=== PATIENT | male | born 1955 | race Caucasian/White ===

== ENCOUNTER 2017-04-28 22:54 | Observation (INO) | payer OTHER ==
[2017-04-29] MEDS ORDERED: NS 0.9% 1000 ML* 1,000 ML IV ONE (00:55)
[2017-04-29 01:53] LABS: Hematocrit 36 % (42-52); Hemoglobin 12.1 g/dl (14.0-18.0); Mean Corpuscular HGB Conc 34 g/dl (31-36); Mean Corpuscular Hemoglobin 30 pg (27-31); Mean Corpuscular Volume 87 fL (80-94); Mean Platelet Volume 11 um3 (7.4-10.4); Red Blood Count 4.08 10^6/ul (4.0-5.4); Red Cell Distribution Width 13 % (10.5-15); White Blood Count 5.9 10^3/ul (3.5-10.8)
[2017-04-29 02:04] LABS: Albumin 3.8 g/dL (3.2-5.2); Calcium 8.8 mg/dL (8.6-10.3); EGFR African American 96.7 (>60); EGFR Non-African American 75.2 (>60); Globulin 2.4 g/dL (2-4); Total Bilirubin 0.4 mg/dL (0.2-1.0); Total Protein 6.2 g/dL (6.4-8.9)
[2017-04-29 02:05] LABS: Urine Bilirubin Negative (Negative); Urine Glucose Negative (Negative); Urine Nitrite Negative (Negative)
[2017-04-29 02:08] LABS: Urine Bacteria Absent (Absent)
[2017-04-29 03:39] LABS: HDL Cholesterol 33.5 mg/dL
[2017-04-29] MEDS ORDERED: Acetaminophen TAB* 325 MG PO PRN (04:57)
--- NOTE | 2017-04-29 07:57 | ED ---
Janna Cordon Rebecca, scribed for William Gatica MD on 04/29/17 at 0045 . Neurological HPI - HPI Summary HPI Summary: Pt is a 62 y/o M who presents to ED c/o L-sided numbness. Pt reports that tonight at approximately 2215, after dinner he began experiencing L-sided weakness, L-sided dental pain and L-sided facial and shoulder numbness. Reports that when carrying items, he never felt as though he was going to drop them, but that he "didn't feel quite right" and that "walking around felt funny." Sx aggravated and alleviated by nothing. Additionally c/o diaphoresis, lightheadedness and mild ORDAZ that have resolved. Denies facial droop or slurred speech with his family confirming that he has been conversing regularly. PMHx A Fib - is on a blood thinner. No prior similar episodes of numbness. He forgot to take his night medications until about 30 minutes after he typically takes them. No FHx strokes. - History of Current Complaint Chief Complaint: EDNeurologicalDeficit Stated Complaint: HOT FLASHES Time Seen by Provider: 04/29/17 00:29 Hx Obtained From: Patient Onset/Duration: Started hours ago, Still Present Pain Intensity: 0 Pain Scale Used: 0-10 Numeric Character: Weak - L-sided, Numbness/Tingling - L-sided facial numbness Aggravating: Nothing Alleviating: Nothing Associated Signs and Symptoms: Positive: Headache - resolved, Lightheadness. Negative: Impaired Speech - Allergy/Home Medications Allergies/Adverse Reactions: Allergies Allergy/AdvReac Type Severity Reaction Status Date / Time No Known Allergies Allergy Verified 04/29/17 01:36 Home Medications: Home Medications Atorvastatin* [Lipitor*] 10 mg PO DAILY 04/29/17 [History Confirmed 04/29/17] Dabigatran CAP(NF) [Pradaxa CAP(NF)] 150 mg PO BID 04/29/17 [History Confirmed 04/29/17] Lisinopril [Zestril 10 MG-] 10 mg PO DAILY 04/29/17 [History Confirmed 04/29/17] Metoprolol Tartrate [Lopressor] 25 mg PO DAILY 04/29/17 [History Confirmed 04/29] Omeprazole [Prilosec] 20 mg PO DAILY 04/29/17 [History Confirmed 04/29/17] Propafenone HCl 300 mg PO BID 04/29/17 [History Confirmed 04/29/17] PMH/Surg Hx/FS Hx/Imm Hx Cardiovascular History: Reports: Hx Atrial Fibrillation Neurological History: Denies: Hx CVA, Hx Transient Ischemic Attacks (TIA) Infectious Disease History: No Infectious Disease History: Denies: Traveled Outside the [place] in Last 30 Days - Family History Known Family History: Positive: Other - No FHx stroke - Social History Alcohol Use: Occasionally Substance Use Type: Reports: None Smoking Status (MU): Never Smoked Tobacco Review of Systems Positive: Skin Diaphoresis - resolved Positive: Dental Pain - L-sided Negative: Chest Pain Negative: Shortness Of Breath Neurological: Other - Lightheadedness - resolved; NEGATIVE facial droop Positive: Headache - Mild - resolved, Weakness - Left-sided, Numbness - Left- sided shoulder and facial. Negative: Slurred Speech All Other Systems Reviewed And Are Negative: Yes Physical Exam - Summary Physical Exam Summary: The patient is well-nourished in no acute distress and in no acute pain. The skin is warm and dry and skin color reflects adequate perfusion. HEENT: The head is normocephalic and atraumatic. VIsual acuity is within normal range. The pupils are equal and reactive. The conjunctivae are clear and without drainage. Nares are patent and without drainage. Mouth reveals moist mucous membranes with a midline tongue and the throat is without erythema and exudate. The external ears are intact. The ear canals are patent and without drainage. The tympanic membranes are intact. Neck is supple with full range of motion and non-tender. There are no carotid bruits. Respiratory: Chest is non-tender. Lungs are clear to auscultation and breath sounds are symmetrical and equal. Cardiovascular: Hear is regular rate and rhythm. There is no murmur or rub auscultated. There is no peripheral edema and pulses are symmetrical and equal. Abdomen: The abdomen is soft and non-tender. There are normal bowel sounds heard in all four quadrants and there is no organomegaly palpated. Musculoskeletal: There is no back pain noted. Extremities are non-tender with full range of motion. There is good capillary refill. There is no peripheral edema or calf tenderness elicited. Neurological: Patient is alert and oriented to person, place and time. The patient has symmetrical motor strength in all four extremities. Cranial nerves are grossly intact. Deep tendon reflexes are symmetrical and equal in all four extremities. He has no facial droop, no pronator drift in the upper extremities or lower extremities. Finger to nose is intact and heel to bowen is intact. He has no decreased sensation. Psychiatric: The patient has an appropriate affect and does not exhibit any anxiety or depression. NIH: 0 GCS: 15 Triage Information Reviewed: Yes Vital Signs On Initial Exam: Initial Vitals Temp Pulse Resp BP Pulse Ox 98.2 F 38 18 150/55 98 04/28/17 22:57 04/28/17 22:57 04/28/17 22:57 04/28/17 22:57 04/28/17 22:57 Vital Signs Reviewed: Yes Diagnostics - Vital Signs Vital Signs Temp Pulse Resp BP Pulse Ox 04/28/17 23:27 60 04/28/17 23:18 152/66 04/28/17 23:17 65 96 04/28/17 23:14 53 96 04/28/17 23:13 146/51 04/28/17 22:57 98.2 F 38 18 150/55 98 - Laboratory Lab Results: Lab Results 04/29/17 04/29/17 04/29/17 Range/Units 01:39 01:39 01:39 WBC 5.9 (3.5-10.8) 10^3/ul RBC 4.08 (4.0-5.4) 10^6/ul Hgb 12.1 L (14.0-18.0) g/dl Hct 36 L (42-52) % MCV 87 (80-94) fL MCH 30 (27-31) pg MCHC 34 (31-36) g/dl RDW 13 (10.5-15) % Plt Count 132 L (150-450) 10^3/ul MPV 11 H (7.4-10.4) um3 Neut % (Auto) 51.1 (38-83) % Lymph % (Auto) 30.7 (25-47) % Shelby % (Auto) 7.8 (1-9) % Eos % (Auto) 9.2 H (0-6) % Baso % (Auto) 1.2 (0-2) % Absolute Neuts (auto) 3.0 (1.5-7.7) 10^3/ul Absolute Lymphs (auto) 1.8 (1.0-4.8) 10^3/ul Absolute Monos (auto) 0.5 (0-0.8) 10^3/ul Absolute Eos (auto) 0.5 (0-0.6) 10^3/ul Absolute Basos (auto) 0.1 (0-0.2) 10^3/ul Absolute Nucleated RBC 0 10^3/ul Nucleated RBC % 0 INR (Anticoag Therapy) 1.10 (0.89-1.11) APTT 39.2 H (26.0-36.3) seconds Sodium 137 (133-145) mmol/L Potassium 4.0 (3.5-5.0) mmol/L Chloride 107 (101-111) mmol/L Carbon Dioxide 26 (22-32) mmol/L Anion Gap 4 (2-11) mmol/L BUN 19 (6-24) mg/dL Creatinine 1.00 (0.67-1.17) mg/dL Est GFR ( Amer) 96.7 (>60) Est GFR (Non-Af Amer) 75.2 (>60) BUN/Creatinine Ratio 19.0 (8-20) Glucose 114 H (70-100) mg/dL Lactic Acid (0.5-2.0) mmol/L Calcium 8.8 (8.6-10.3) mg/dL Total Bilirubin 0.40 (0.2-1.0) mg/dL AST 15 (13-39) U/L ALT 15 (7-52) U/L Alkaline Phosphatase 49 (34-104) U/L Troponin I 0.00 (<0.04) ng/mL Total Protein 6.2 L (6.4-8.9) g/dL Albumin 3.8 (3.2-5.2) g/dL Globulin 2.4 (2-4) g/dL Albumin/Globulin Ratio 1.6 (1-3) Triglycerides 198 mg/dL Cholesterol 149 mg/dL LDL Cholesterol 76 mg/dL HDL Cholesterol 33.5 mg/dL Urine Color Urine Appearance Urine pH (5-9) Ur Specific Carmel (1.010-1.030) Urine Protein (Negative) Urine Ketones (Negative) Urine Blood (Negative) Urine Nitrate (Negative) Urine Bilirubin (Negative) Urine Urobilinogen (Negative) Ur Leukocyte Esterase (Negative) Urine WBC (Auto) (Absent) Urine RBC (Auto) (Absent) Ur Squamous Epith Cells (Absent) Urine Bacteria (Absent) Urine Glucose (Negative) 04/29/17 04/29/17 Range/Units 01:39 01:39 WBC (3.5-10.8) 10^3/ul RBC (4.0-5.4) 10^6/ul Hgb (14.0-18.0) g/dl Hct (42-52) % MCV (80-94) fL MCH (27-31) pg MCHC (31-36) g/dl RDW (10.5-15) % Plt Count (150-450) 10^3/ul MPV (7.4-10.4) um3 Neut % (Auto) (38-83) % Lymph % (Auto) (25-47) % Shelby % (Auto) (1-9) % Eos % (Auto) (0-6) % Baso % (Auto) (0-2) % Absolute Neuts (auto) (1.5-7.7) 10^3/ul Absolute Lymphs (auto) (1.0-4.8) 10^3/ul Absolute Monos (auto) (0-0.8) 10^3/ul Absolute Eos (auto) (0-0.6) 10^3/ul Absolute Basos (auto) (0-0.2) 10^3/ul Absolute Nucleated RBC 10^3/ul Nucleated RBC % INR (Anticoag Therapy) (0.89-1.11) APTT (26.0-36.3) seconds Sodium (133-145) mmol/L Potassium (3.5-5.0) mmol/L Chloride (101-111) mmol/L Carbon Dioxide (22-32) mmol/L Anion Gap (2-11) mmol/L BUN (6-24) mg/dL Creatinine (0.67-1.17) mg/dL Est GFR ( Amer) (>60) Est GFR (Non-Af Amer) (>60) BUN/Creatinine Ratio (8-20) Glucose (70-100) mg/dL Lactic Acid 0.9 (0.5-2.0) mmol/L Calcium (8.6-10.3) mg/dL Total Bilirubin (0.2-1.0) mg/dL AST (13-39) U/L ALT (7-52) U/L Alkaline Phosphatase (34-104) U/L Troponin I (<0.04) ng/mL Total Protein (6.4-8.9) g/dL Albumin (3.2-5.2) g/dL Globulin (2-4) g/dL Albumin/Globulin Ratio (1-3) Triglycerides mg/dL Cholesterol mg/dL LDL Cholesterol mg/dL HDL Cholesterol mg/dL Urine Color Straw Urine Appearance Clear Urine pH 5.0 (5-9) Ur Specific Carm[place] 1.015 (1.010-1.030) Urine Protein Negative (Negative) Urine Ketones Negative (Negative) Urine Blood Negative (Negative) Urine Nitrate Negative (Negative) Urine Bilirubin Negative (Negative) Urine Urobilinogen Negative (Negative) Ur Leukocyte Esterase 2+ H (Negative) Urine WBC (Auto) 3+(>20/hpf) H (Absent) Urine RBC (Auto) 2+(6-10/hpf) H (Absent) Ur Squamous Epith Cells Present H (Absent) Urine Bacteria Absent (Absent) Urine Glucose Negative (Negative) Result Diagrams: 04/29/17 01:39 04/29/17 01:39 Lab Statement: Any lab studies that have been ordered have been reviewed, and results considered in the medical decision making process. - CT Brain CT CT Interpretation: No Acute Changes - No acute intracranial hemorhage, mass effect, or midline shift. Mild nonspecific periventricular predominant low density throughout the deep white mater is most likely due to mild small vessel ischemic white matter disease. No evidence of a large territory of subacute stroke. If there is a clinical concern for a small acurte stroke, then followup evaluation with MRI of the brain may be needed. Mild sinusitis. ED physician reviewed this radiology report and agrees. CT Interpretation Completed By: Radiologist NIH Scale - NIH Scale Level of Consciousness: Alert/Keenly Responsive Ask Patient the Month and His/Her Age: Both Correct Ask Pt to Open/Close Eyes and Clean Out Driller Helper/Release Non-Paretic Hand: Both Correctly Best Gaze (Only Horizontal Eye Movement): Normal Visual Field Testing: No Visual Loss Facial Paresis-Pt to Smile & Close Eyes or Grimace Symmetry: Normal/Symmetrical Motor Function - Right Arm: No Drift-Holds 10 Seconds Motor Function - Left Arm: No Drift-Holds 10 Seconds Motor Function - Right Leg: No Drift-Holds 10 Seconds Motor Function - Left Leg: No Drift-Holds 10 Seconds Limb Ataxia-Must be out of Proportion to Weakness Present: Absent Sensory (Use Pinprick to Test Arms/Legs/Trunk/Face): Normal Best Language (Describe Picture, Name Items): No Aphasia Extinction and Inattention: No Abnormality Re-Evaluation - Re-Evaluation First Eval Re-Evaluation Time: 04:03 Change: Improved Comment: Symptoms have completely resolved Course/Dx - Course Assessment/Plan: Pt is a 62 y/o M who presents to ED c/o L-sided numbness. Pt reports that tonight at approximately 2215, after dinner he began experiencing L -sided weakness, L-sided dental pain and L-sided facial and shoulder numbness. Reports that when carrying items, he never felt as though he was going to drop them, but that he "didn't feel quite right" and that "walking around felt funny. " Sx aggravated and alleviated by nothing. Additionally c/o diaphoresis, lightheadedness and mild ORDAZ that have resolved. Denies facial droop or slurred speech with his family confirming that he has been conversing regularly. PMHx A Fib - is on a blood thinner. No prior similar episodes of numbness. He forgot to take his night medications until about 30 minutes after he typically takes them. No FHx strokes. CXR reveals no acute findings. EKG is ____. In the ED course, pt received fluids wich improved sx. Upn re-evaluation sx have completely resolved. Discussed care of pt with Dr. Manuel who accepts pt for admission. Pt will be admitted with Dx of TIA. he understands and agrees. Elevated BP noted and advised to f/u with PCP. - Differential Dx Differential Diagnoses Neuro: Positive: Cerebrovascular Accident, Headache, Hemorrhage, Transient Ischemic Attack, Other - atrial fibrillation via history, - Diagnoses Provider Diagnoses: TIA (transient ischemic attack) - Physician Notifications Discussed Care Of Patient With: Pricila Manuel Time Discussed With Above Provider: 04:00 Instructed by Provider To: Other - Accepts pt for admission Discharge - Discharge Plan Condition: Stable Disposition: ADMITTED TO [facility] documentation as recorded by the scribe, DiFabio,Stephanie accurately reflects the service I personally performed and the decisions made by me, William Gatica MD.
--- NOTE | 2017-04-29 07:59 | RAD ---
HISTORY: Headache, left-sided numbness COMPARISONS: None TECHNIQUE: Multiple contiguous axial CT scans were obtained of the head without intravenous contrast. FINDINGS: HEMORRHAGE/INFARCT: There is no hemorrhage or acute infarct. MASSES/SHIFT: There is no mass or shift. EXTRA-AXIAL SPACES: There are no extra-axial fluid collections. SULCI AND VENTRICLES: The sulci and ventricles are normal in size and position for the patient's stated age. CEREBRUM: There is minimal hypoattenuation of the periventricular and subcortical white matter. BRAINSTEM: There are no focal parenchymal abnormalities. CEREBELLUM: There are no focal parenchymal abnormalities. VESSELS: The vessels are grossly normal. PARANASAL SINUSES: There is air-fluid level within the left maxillary sinus. ORBITS: The orbits are unremarkable. BONES AND SOFT TISSUE: No bone or soft tissue abnormalities are noted. OTHER: None IMPRESSION: 1. NO ACUTE INTRACRANIAL PATHOLOGY. 2. MINIMAL CHRONIC SMALL VESSEL ISCHEMIC CHANGES. 3. MILD SINUS MUCOSAL INFLAMMATORY DISEASE, WITH AN AIR-FLUID LEVEL IN THE LEFT MAXILLARY. IN THE CORRECT CLINICAL SETTING, THIS MAY REPRESENT ACUTE SINUSITIS
--- NOTE | 2017-04-29 08:34 | RAD ---
CPT II: CPT II Codes: 3100F Indication: Carotid artery stenosis. Duplex Doppler sonography of the carotid arteries was performed. Right common carotid artery demonstrates intimal wall thickening with plaque extending into the right internal carotid artery. Peak systolic velocity of the distal right common carotid artery is 132 cm/s. Peak systolic velocity of the right internal carotid artery is 139 cm/s. The ICA/CC ratio is 1.05. Right vertebral artery demonstrates antegrade flow. The left common carotid artery demonstrates minimal plaque in the carotid bulb. Peak systolic velocity of the left common carotid artery is 153 cm/s. Peak systolic velocity of the left proximal internal carotid artery is 1 27 cm/s. The IC/CC ratio 0.83. Left vertebral artery demonstrates antegrade flow. IMPRESSION: Elevated velocities are present throughout the common carotid arteries and internal carotid artery laterally. This may be due to hyperdynamic state and correlation with blood pressure is suggested. No definite stenosis is identified when using the ICA/CCA ratios rather than absolute velocities. Minimal plaque is noted in both carotid artery origins.
[2017-04-29] MEDS ORDERED: CMC:Dabigatran CAP(NF) 150 MG CAP PO SCH (09:00)
[2017-04-29] MEDS ORDERED: Atorvastatin* 10 MG TAB PO SCH (09:00)
[2017-04-29] MEDS ORDERED: Omeprazole CAP* 20 MG PO SCH (09:00)
[2017-04-29] MEDS ORDERED: Lisinopril TAB* 10 MG PO SCH (09:00)
[2017-04-29] MEDS ORDERED: Metoprolol Tartrate TAB* 25 MG PO SCH (09:00)
[2017-04-29] MEDS ORDERED: proPAFENone TAB* 150 MG PO SCH (09:00)
--- NOTE | 2017-04-29 11:44 | RAD ---
Indication: Evaluate for stroke. Image sequences: Sagittal and axial T1, axial T2, FLAIR, diffusion and susceptibility weighted images of the brain were obtained. Ventricular structures are midline. No midline shift is noted. The extra-axial spaces are unremarkable. There is no evidence of intracranial mass or hemorrhage. No other high or low signal lesions are identified. Diffusion-weighted images demonstrates no restriction of diffusion. Mucosal thickening of the left maxillary sinus is noted with air-fluid levels. Mastoid air cells and paranasal sinuses are unremarkable. IMPRESSION: Chronic and acute sinusitis involving the left maxillary sinus. No restriction of diffusion is identified. No other masses or fluid collections are noted.
[2017-04-29] MEDS ORDERED: Iohexol 350* (CONTRAST) 500 ML MDV IV ONE (12:12)
--- NOTE | 2017-04-29 13:50 | ECHO ---
Patient: JAZMYN MCKOY [facility] Rec#: [id number] : 1955 Date: 04/29/2017 Age: 62y Height: 177.8 cm / 70.0 in Weight: 90.72 kg / 199.9 lbs Sex: M BSA: 2.09 Room#: 435 Admit Date#: 04/29/2017 Type: Inpatient Referring: Pricila Manuel MD Reading: Bismark Chaney MD Ladies Suit Operator: Arminda Britton [facility] Transthoracic Echocardiogram Indication: TIA BP: 119/64 HR: 53 Rhythm: A-Fib Findings History: HTN,headeache TIA. Left Ventricle: The left ventricular chamber size is normal. Mild concentric left ventricular hypertrophy is observed. Global left ventricular wall motion and contractility are within normal limits. There is normal left ventricular systolic function. The estimated ejection fraction is 55-60%. Normal left ventricular diastolic filling is observed. Left Atrium: The left atrial chamber size is normal. Right Ventricle: The right ventricular cavity size is normal. The right ventricular global systolic function is normal. Right Atrium: The right atrial cavity size is normal. There is no patent foramen ovale visualized. There is no evidence of patent foramen ovale shunting. A patent foramen ovale is not demonstrated with color Doppler and agitated contrast. Aortic Valve: The aortic valve is trileaflet. There is no evidence of aortic valve thickening. There is no evidence of aortic regurgitation. There is no evidence of aortic stenosis. Mitral Valve: The mitral valve leaflets appear normal. There is mild mitral regurgitation. The mitral regurgitant jet is centrally directed. There is no evidence of mitral stenosis. Tricuspid Valve: The tricuspid valve leaflets are normal. There is trace to mild tricuspid regurgitation. There is evidence of mild pulmonary hypertension. There is no tricuspid stenosis. Pulmonic Valve: The pulmonic valve appears normal. There is a trace pulmonic regurgitation. There is no pulmonic stenosis. Pericardium: The pericardium appears normal. Aorta: There is no dilatation of the ascending aorta. There is no dilatation of the aortic arch. There is no dilation of the aortic root. Pulmonary Artery: The main pulmonary artery appears normal. Venous: The venous system is not well visualized. Conclusions No evidence for right to left shunting at the atrial level by color flow or agitated saline. Mild concentric left ventricular hypertrophy is observed. There is normal left ventricular systolic function. The estimated ejection fraction is 55-60%. Normal left ventricular diastolic filling is observed. There is mild mitral regurgitation. There is trace to mild tricuspid regurgitation. There is evidence of mild pulmonary hypertension. There is a trace pulmonic regurgitation. No reports of prior studies offered for comparison. Of note left atrial thrombus assessment cannot asad made by transthoracic echocardiography, would recommend transesophageal echocardiography if clinically indicated. Measurements Name Value Normal Range RVIDd (AP) 2D 2.9 cm (0.9 - 2.6) RVDdMajor (2D) 4.1 cm (2.2 - 4.4) RAd ISD 4CH 5.5 cm (3.4 - 4.9) RA (A4C)W 4 cm (2.9 - 4.6) IVSd (2D) 1.1 cm (0.6 - 1) LVPWd (2D) 1.1 cm (0.6 - 1) LVIDd (2D) 4 cm (3.6 - 5.4) LVIDs (2D) 2.6 cm - LV FS (2D) 36 % (25 - 45) Aortic Annulus 1.8 cm (1.4 - 2.6) Ao root diameter (2D) 3.2 cm (2.1 - 3.5) Ascending Ao 2.5 cm (2.1 - 3.4) Aortic arch 2.7 cm (1.8 - 3.4) Descending Ao 0.5 cm - LA dimension (AP) 2D 3.9 cm (2.3 - 3.8) LAd ISD 4CH 6.2 cm (2.9 - 5.3) LA ISD 4CH W 4.7 cm (2.5 - 4.5) Name Value Normal Range LA ESV SP 4CH (A/L) 92 ml - LA ESV SP 2CH (A/L) 62 ml - LA ESV BP (A/L) 83 ml - LA ESV BP (A/L) index 39.53 ml/m2 - LA ESV SP 4CH (MOD) 84 ml - LA ESV SP 2CH (MOD) 57 ml - Name Value Normal Range MV E-wave Vmax 1 m/sec - MV deceleration time 187 msec - MV A-wave Vmax 0.9 m/sec - MV E:A ratio 1.09 ratio - LV septal e' Vmax 0.1 m/sec - LV lateral e' Vmax 0.12 m/sec - LV E:e' septal ratio 10 ratio - LV E:e' lateral ratio 8.33 ratio - Name Value Normal Range AV Vmax 1.6 m/sec - AV VTI 39.1 cm - AV peak gradient 9.96 mmHg - AV mean gradient 4.54 mmHg - LVOT Vmax 1 m/sec - LVOT VTI 26.5 cm - LVOT peak gradient 4.35 mmHg - LVOT mean gradient 1.92 mmHg - Name Value Normal Range MR Vmax 3.97 m/sec - MR VTI 175 cm - Name Value Normal Range TR Vmax 2.5 m/sec - TR peak gradient 24 mmHg - RAP 8 mmHg - RVSP 32 mmHg - Name Value Normal Range PV Vmax 1.5 m/sec - PV peak gradient 9.18 mmHg -
--- NOTE | 2017-04-29 14:06 | RAD ---
HISTORY: TIA COMPARISONS: MRI dated April 29, 2017, carotid ultrasound dated April 29, 2017 TECHNIQUE: Multiple contiguous axial CT scans were obtained of the head and neck After the administration of nonionic intravenous contrast timed to the systemic arterial phase of contrast enhancement. Coronal and sagittal multiplanar reformations are submitted for review. Multiple 3-D maximum intensity projection reconstructions are also submitted for review. FINDINGS: CTA NECK: AORTIC ARCH: There is a normal three-vessel branching pattern of the aortic arch. There is no ostial or proximal stenosis of the cephalic great vessels. RIGHT VERTEBRAL ARTERY: The right vertebral artery is patent along its course, without stenosis. LEFT VERTEBRAL ARTERY: The left vertebral artery is patent along its course, without stenosis. DOMINANCE: The vertebral arteries are codominant. RIGHT COMMON CAROTID ARTERY: The right common carotid artery is patent. The right carotid bifurcation occurs at C4-C5 RIGHT INTERNAL CAROTID ARTERY: There is no right internal carotid artery stenosis by NASCET criteria. RIGHT EXTERNAL CAROTID ARTERY: The right external carotid artery is unremarkable. LEFT COMMON CAROTID ARTERY: The left common carotid artery is patent. The left carotid bifurcation occurs at C4-C5 LEFT INTERNAL CAROTID ARTERY: There is no left internal carotid artery stenosis by NASCET criteria. LEFT EXTERNAL CAROTID ARTERY: The left external carotid artery is unremarkable. VENOUS CIRCULATION: The venous system is unremarkable. SALIVARY GLANDS: The parotid glands, submandibular glands, sublingual glands are normal. NASAL CAVITY/NASOPHARYNX: The nasal cavity and nasopharynx are normal. ORAL CAVITY/OROPHARYNX: The oral cavity is obscured by streak artifact from dental amalgam. The visualized oral cavity and oropharynx are unremarkable. LARYNGEAL APPARATUS/HYPOPHARYNX: The laryngeal apparatus and hypopharynx are normal. UPPER AIRWAY/UPPER ESOPHAGUS: The visualized upper airway and esophagus are normal. LUNG APICES: The lung apices are clear. THYROID GLAND: The thyroid gland is normal. LYMPH NODES: There is no lymphadenopathy by size criteria. BONES AND SOFT TISSUES: No bone or soft tissue abnormalities are noted. CTA HEAD: INTRACRANIAL CIRCULATION: There is no aneurysm, vascular malformation, occlusion, or stenosis of the visualized intracranial circulation. The anterior communicating artery complex is clear. Bilateral posterior communicating arteries are identified. VENOUS CIRCULATION: The venous system is unremarkable. PERFUSION: There is no obvious parenchymal perfusion deficit. HEMORRHAGE/INFARCT: There is no hemorrhage or acute infarct. MASSES/SHIFT: There is no mass or shift. EXTRA-AXIAL SPACES: There are no extra-axial fluid collections. SULCI AND VENTRICLES: The sulci and ventricles are normal in size and position for the patient's stated age. CEREBRUM: There are no focal parenchymal abnormalities. BRAINSTEM: There are no focal parenchymal abnormalities. CEREBELLUM: There are no focal parenchymal abnormalities. PARANASAL SINUSES: There is mucosal thickening of the left maxillary sinus with an air-fluid level within the left maxillary sinus. ORBITS: The orbits are unremarkable. BONES AND SOFT TISSUE: Degenerative changes are noted OTHER: There is no abnormal enhancement. IMPRESSION: 1. NO INTERNAL CAROTID ARTERY STENOSIS BY NASCET CRITERIA. 2. NO ANEURYSM, VASCULAR MALFORMATION, OCCLUSION, OR STENOSIS OF THE VISUALIZED INTRACRANIAL CIRCULATION.. 3. MODERATE SINUS MUCOSAL INFLAMMATORY DISEASE, WITH AN AIR-FLUID LEVEL IN THE LEFT MAXILLARY. IN THE CORRECT CLINICAL SETTING, THIS MAY REPRESENT ACUTE SINUSITIS CPT II Codes: 3100F
--- NOTE | 2017-04-29 14:28 | HP ---
CC: [facility] [place], [place]; Dr. Dinh * HISTORY AND PHYSICAL: DATE OF ADMISSION: 04/29/17 PRIMARY CARE PROVIDER: Physician from the [facility] [place], the [place]. CHIEF COMPLAINT: Left-sided numbness. HISTORY OF PRESENT ILLNESS: Gus Sullivan is a 62-year-old male with history of paroxysmal atrial fibrillation, on propafenone and Pradaxa, who presented complaining of left-sided numbness that occurred on 04/28/17 in the evening and lasted approximately an hour and half. The patient stated that the numbness was in his left face spreading to his left shoulder. He also stated that his left leg also felt somewhat strange and may be also numb. He stated that the area was numb for an hour and half and the second part of the duration of the episode, he developed frontal headache that resolved later on. By the time of the evaluation in the emergency department, he is back to his norm. Patient stated that he has history of paroxysmal atrial fibrillation, but he is not aware when he is in atrial fibrillation. He had been visiting his family in the [facility] and he is originally from [place]. Himself and his flew over to [place] with his family a week ago and since then had been driving from [place] to [place] and from [place] to [place]. _ in [place] up over 24 hours ago. Patient is going to be placed on overnight observation with diagnosis of possibility of TIA. PAST MEDICAL HISTORY: 1. History of paroxysmal atrial fibrillation. 2. History of gout. 3. Hypertension. 4. Dyslipidemia. 5. History of diverticulitis in the past. 6. History of left shoulder surgery. 7. History of right ulnar nerve repair. 8. History of carpal tunnel release on the right. 9. History of bilateral knee arthroscopies in the past. MEDICATIONS: Include: 1. Lipitor 10 mg daily. 2. Lopressor 25 mg b.i.d. 3. Lisinopril 10 mg daily. 4. Propafenone 300 mg b.i.d. 5. Pradaxa 350 mg b.i.d. 6. Omeprazole 20 mg daily. 7. Patient also uses Viagra as needed. ALLERGIES: No known drug allergies. FAMILY HISTORY: Noncontributory. His mother is well and alive at the age of 81. No siblings with history of diabetes, heart disease, or cancer. SOCIAL HISTORY: The patient denies any tobacco or drug use. He drinks couple of glasses of alcohol a day. He is retired. His surrogate is female significant other, Teodora Cade. REVIEW OF SYSTEMS: Please see history of present illness. All the 14 systems were reviewed with the patient and were negative. PHYSICAL EXAMINATION GENERAL: The patient is a very pleasant 62-year-old male, who is in no acute distress. Alert, awake, and oriented x3. VITAL SIGNS: Blood pressure of 133/54, heart rate of 71 and regular, respiratory rate 15, oxygen saturation 95% on room air, temperature of 98.2. HEENT: Head: Atraumatic, normocephalic. Eyes: Pupils are equal and reactive to light and accommodation. Oropharynx clear. Mucosa moist. NECK: Supple. No JVD. No bruits bilaterally. RESPIRATORY: Clear to auscultation bilaterally. CARDIOVASCULAR: Regular rate and rhythm. No murmur. ABDOMEN: Soft, nontender. Bowel sounds present in all 4 quadrants. EXTREMITIES: There is no edema. Pulses are +2 bilaterally. No clubbing or cyanosis. NEUROLOGIC: Speech clear. Cranial nerves II through XII are grossly intact. Motor strength is 5/5 bilaterally. SKIN: On evaluation of the skin, no ecchymotic areas or rashes noted. PSYCHIATRIC EVALUATION: Oriented x3 with no evidence of anxiety or depression. DIAGNOSTIC STUDIES/LAB DATA: Laboratory data showed white blood cell count of 5.9, hemoglobin of 12.1, hematocrit of 36, and platelets 132. Sodium is 137, potassium 4, chloride 107, carbon dioxide 26, BUN 19, creatinine 1. Liver functions unremarkable. Troponin of 0. Lactic acid of 0.9. Urinalysis was positive for +2 esterase, +3 white blood cells, +2 red blood cells, and absent bacteria. Patient's EKG is pending at the time of dictation. Patient's brain CT, impression: "No acute intracranial hemorrhage, mass effect , or midline shift. Mild nonspecific periventricular predominant low density throughout the deep white matter is most likely due to mild small vessel ischemic white matter disease. No evidence of large territory or subacute stroke. There is clinical concern for small acute stroke and followup evaluation with MRI of the brain will be needed. Mild sinusitis." ASSESSMENT AND PLAN: 1. In regards to the patient's transient left-sided numbness. At this point, transient ischemic attack on differential. Patient stated that he had been compliant with his Pradaxa medication throughout his travel. At this point, the patient is going to be observed on cardiac monitor bed. Transesophageal echocardiogram with bubble study is going to be obtained in the morning as well as carotid Doppler studies and MRI of the brain. I will continue patient's neuro checks every [address] Dinh to see the patient in the morning. I also continue his Pradaxa for cardioembolic stroke prevention. 2. In regards to paroxysmal atrial fibrillation. Although EKG had not been obtained in the ED yet, patient is in sinus rhythm on telemonitor. He is going to be continued on propafenone as well as beta-janet. 3. In regards to patient's hypertension, it is controlled and his anti- hypertensive medications are going to continued. 4. For his dyslipidemia, patient's LDL was noted to be 76 and he is going to be continued on his Lipitor. 5. For DVT prophylaxis, the patient is to be continued on Pradaxa and he is at moderate risk for DVT. 6. Patient's code status is full and his surrogate is his significant other, Teodora. TIME SPENT: Approximately 55 minutes was spent on admission of this patient, more than half of the time was spent [id number] with the patient during the interview and physical exam. [id number]/[facility] #: [id number] TIANNA
--- NOTE | 2017-04-29 17:13 | CONS ---
CONSULTATION REPORT: DATE OF CONSULT: 04/29/17 LOCATION: He is currently in room 435, bed 1. REASON FOR CONSULT: Left facial numbness. HISTORY OF PRESENT ILLNESS: Mr. Sullivan is a very nice 62-year-old gentleman who has a history of atrial fibrillation, on Pradaxa; history of hypertension and hyperlipidemia. No prior history of stroke or heart attack. He states that he is compliant with his medications. He was in his usual state of health , when at about 10:30 last night after dinner, he complained in the ER of some left-sided weakness and left-sided dental pain and left-sided facial and shoulder numbness. He noted to them that this happened when he was carrying items, but he did not feel that he was going to drop them. He also "did not feel quite right." When he was walking around, he felt off balance. At that time, he complained of some diaphoresis, lightheadedness, and a mild headache that resolved after some IV fluids. To me this morning he states that the only symptom he had was left facial numbness and tingling in the upper and lower face. Denied any numbness or tingling in the left arm or leg. No right-sided findings. He denied any weakness for me. Denied any chest pain, shortness of breath, dyspnea on exertion. He had no palpitations during the episodes. He does have chronic tinnitus, but no worsening. No hearing loss. No nausea or vomiting at that time. He said his symptoms lasted about 45 minutes and then they resolved and he has had no further symptoms since that time. He denies any head trauma or falls, any focal right-sided findings. No recent illnesses, fevers, or chills. He has never had these symptoms before. He never had a stroke or heart attack in the past. He states that he goes "in and out" of atrial fibrillation. Per the ER note, he stated that he forgot to take his medications until about 30 minutes after he typically take them, but otherwise denied any noncompliance. In the ER, his NIH stroke scale was rated as 0. No facial droop was noted. The patient states that he had no problems with language words, word finding, or slurred speech, although he said at one point, his son who is a mines safety engineer asked him to say [place] and it may have been slightly slurred. This has since resolved. He is a prior tobacco smoker, but quit years ago, occasionally smokes marijuana. This morning he feels back to his base-line. He did have the following studies done at this point, a brain CT , films reviewed, no acute intracranial abnormality, some sinusitis, small vessel ischemic changes. MRI of the brain showed no acute DWI or ADC map changes. He does have some chronic sinusitis noted again. Carotid ultrasound showed elevated velocities are present through the common carotid arteries and internal carotid arteries. This may be due to hyperdynamic state and correlation with blood pressure suggested, no definite stenosis is identified. Echocardiogram is pending. PAST MEDICAL HISTORY: As noted above, also GERD. PAST SURGICAL HISTORY: Includes multiple orthopedic surgeries in his shoulders , knees, right arm. MEDICATIONS: Current medications at home include: 1. Tylenol p.r.n. 2. Atorvastatin 10 mg p.o. daily. 3. Pradaxa 150 mg p.o. b.i.d. 4. Lisinopril 10 mg p.o. daily. 5. Metoprolol 25 mg p.o. b.i.d. 6. Omeprazole 20 mg daily. 7. Propafenone 300 mg p.o. b.i.d. ALLERGIES: No known drug allergies. FAMILY HISTORY: Noncontributory. No history of strokes or heart attacks. SOCIAL HISTORY: Retired engineering vice president. He notes smoking marijuana occasionally. He denies any tobacco use. He smoked, but quit in . Rare alcohol use. No other illicit substance use. REVIEW OF SYSTEMS: Fourteen organ systems as noted above, otherwise negative. PHYSICAL EXAM: Vital Signs: Temp of 98.3, pulse of 58 to 70, respiratory rate of 18, O2 sat of 97%, blood pressures 136/49 to 128/55 to 133/54 to 119/64. General: He is a well-nourished, well-developed gentleman, lying on his hospital bed. He is very pleasant. He is well dressed, well groomed. HEENT: He is normocephalic, atraumatic. Sclerae anicteric. Mucous membranes are moist. Oropharynx is clear. Good dentition. Neck is supple. No thyromegaly. No carotid bruits. No meningismus. Chest: Clear to auscultation bilaterally. Cardiovascular: Currently regular rate and rhythm. No murmurs. Abdomen: Nontender, nondistended. Extremities: No clubbing, cyanosis, or edema is appreciated. The skin is warm and dry without lesions. Neurologic exam, he is awake, alert, and oriented x3. His speech is fluent. There is no dysarthria. Repetition is intact. Recall of recent and remote events is intact. Vocabulary is intact. His mood is euthymic. Affect is mood congruent. Cranial Nerves: II through XII. Pupils are equally round and reactive to light. Extraocular muscles are intact. Visual aguirre are full. Face is symmetric. Sensation is intact to light touch, pinprick bilaterally. Hearing is intact bilaterally. Palate is symmetric and raises symmetrically. Tongue is midline. Sternocleidomastoid and trapezius are both 5/5. His motor exam, he is 5/5 throughout. No drift. Tone and bulk are both normal. DTRs are 1+ and symmetric in the upper and lower extremities with equivocal Babinski's bilaterally. Sensation is intact to light touch and pinprick in all extremities. No focal deficits. [id number] and rapid alternating movements are intact without any tremor or dysdiadochokinesia. Gait: He is able to ambulate without difficulty. DIAGNOSTIC STUDIES/LAB DATA: Studies as above. Lab work includes a hemoglobin of 12.1, hematocrit of 36.0, platelet count of 132, PTT of 39.2, INR of 1.10. His complete metabolic profile significant for a glucose of 114, total protein of 6.2, LDL of 76. Urine, 2+ leukocyte esterase. ASSESSMENT AND PLAN: Mr. Sullivan is a 62-year-old gentleman with multiple stroke risk factors including hypertension, hyperlipidemia, atrial fibrillation , on Pradaxa, has been in his usual state of health when yesterday he developed acute onset of left facial numbness in the upper and lower face. He reported in the ER he had some left-sided weakness as well, although he denies this to me. In any event, it appears that he presented with some focal left-sided symptoms, which have now resolved. MRI of the brain showed no acute changes. Carotid ultrasound showed some elevated velocities. Echocardiogram is pending. He is back on his Pradaxa at this point. I will recommend the followin. Continue his Pradaxa. 2. Continue tight blood pressure control. 3. Continue his statin and titrate up to a goal LDL of less than 70. 4. We will check a CTA to rule out any stenosis. The carotid ultrasound was not conclusive. 5. Follow up the echocardiogram to rule out any thrombus or valvular dysfunction. 6. The patient is back to baseline. I think if his studies are all negative, he can be discharged home. I would at this point call this a transient ischemic attack, although the symptoms of left-sided facial numbness are somewhat unusual. His history is different than the history he gave yesterday, which noted more weakness on the left side. He did have a headache at that time , although complicated migraine in his age with his risk factors is unlikely. He has no history of significant migraine headaches. On admission, he has 2+ leukocyte esterase, 3+ white blood cells, absent bacteria. This is likely not indicative of an infection, but I defer to Medicine for further evaluation and treatment as necessary. I will continue to follow him closely and make further recommendations as necessary. Thank you for the opportunity to participate in his care. [id number]/[facility] #: [id number] TIANNA
[2017-04-29 19:25] VITALS: BP 109/56
== END 2017-04-29 20:10 | disposition home or self-care (01) ==
LOC: ED 22:54 → MEDTELE 04-29 04:57
PROVIDERS: ADMIT Internal Medicine; ATTEND Internal Medicine
DX: R20.0 Anesthesia of skin (principal); I48.0 Paroxysmal atrial fibrillation; Z79.01 Long term (current) use of anticoagulants; I10 Essential (primary) hypertension; R00.1 Bradycardia, unspecified; I51.7 Cardiomegaly; M10.9 Gout, unspecified; E78.5 Hyperlipidemia, unspecified; Z79.899 Other long term (current) drug therapy
CPT/HCPCS: 36415; 70450; 70496; 70498; 70551; 80053; 80061; 81003; 81015; 83605; 84484; 85025; 85610; 85730; 87086; 93005; 93306; 93880; 96360; 99284; A9270-GY; G0378; Q9967